=== PATIENT | female | born 1935 ===

== ENCOUNTER 2016-07-11 09:06 | Inpatient (IN) ==
--- NOTE | 2016-07-11 09:39 | PROVIDER DOCUMENTATION ---
HPI-Musculoskeletal Pain/Inj - GENERAL Chief Complaint: Fall Stated Complaint: fall Time Seen by Provider: 07/11/16 09:29 Source: patient, family - HX OF PRESENT ILLNESS-MUSKULOSKELTAL Nature of Presenting Problem: 80 year old obese WF presents with c/o right hip, right shoulder pain, onset just prior to arrival when her right hip "gave out" and she fell onto a kitchen floor. pt reports she did not strike her head on the floor. pt denies chest pain , shortness of breath, difficulty breathing, palpitations, any complaints prior to fall. pt called her sons who brought her to the ED. they report she was unable to bear weight on the right hip at home. family gave her [place] 10mg at 0830 for pain. Quality of Pain: reports: aching, dull Severity in ED: mild Onset/Duration: just prior to arrival Timing: still present, constant, getting worse Modifying Factors: improves with: analgesics, movement Any recent injury?: Yes Locality of Occurance: Home Similar Symptoms Previously?: No Recently seen or treated by another doctor?: No - FALL INJURY Location of Pain/Injury: reports: pelvis (and right hip) Pain Radiation: reports: no radiation Reason for Fall: reports: lost balance, slipped, tripped Symptoms prior to fall:: reports: none. denies: headache, seizure, other, fever /chills/sweaty, chest pain, rapid heart rate, cough, diarrhea, vomiting, GI bleed, dizzy/lightheaded Loss of Consciousness: no loss of consciousness Injury Associated Symptoms: reports: joint pain, unable to bear weight, trouble walking. denies: denies symptoms, arm pain, back/neck pain, chest pain, diaphoresis, dizziness, headaches, muscle aches, nausea, puncture wound, shortness of breath, sensory/motor loss, snap/crack/pop sensation, pain with inspiration, vomiting, weakness, other - HIP/PELVIS PAIN/INJURY Hip Pain Location: reports: hip (R), pelvis Pain Radiation: reports: no radiation Context / Method of Injury: reports: fall Associated Symptoms: reports: denies symptoms. denies: loss of bladder control , loss of bowel control, lower back pain, muscle spasms, numbness in legs/feet, sensory/motor loss, tingling in legs/feet, weakness in legs/feet, other Review of Systems - Adult - REVIEW OF SYSTEMS - ADULT Constitutional: reports: no symptoms reported. denies: chills, fever, fatique Eyes: reports: no symptoms reported. denies: discharge, blurred vision, double vision Ears, Nose, Mouth & Throat: reports: no symptoms reported. denies: ear discharge, ear pain, nose pain, loose teeth, throat pain, throat swelling Cardiovascular: reports: no symptoms reported. denies: chest pain, palpitations , syncope Respiratory: reports: no symptoms reported. denies: chronic cough, cough, shortness of breath, wheezing Gastrointestinal: reports: no symptoms reported. denies: abdominal pain, diarrhea, nausea, vomiting Genitourinary: reports: no symptoms reported. denies: dysuria, hematuria, urgency Musculoskeletal: reports: see HPI, bone pain, joint pain. denies: back pain, frequent leg cramps, joint swelling, muscle aches, muscle weakness, neck pain Integumentary: reports: no symptoms reported. denies: hives, itching, skin sores/ulcer Neurological: reports: no symptoms reported. denies: ataxia, dizziness/vertigo , numbness, paresthesia Psychiatric: reports: no symptoms reported Endocrine: reports: no symptoms reported Hematologic/Lymphatic: reports: no symptoms reported Allergic/Immunologic: reports: no symptoms reported All Other Systems: Reviewed and Negative Past History - Adult - PAST MEDICAL HISTORY-ADULT Review of Records: reports: Old Records Reviewed, Nursing Assessment Review, Medications Reviewed, Social history reviewed & non-contributory. Major Childhood Illnesses: reports: denies history Cardiovascular: reports: HTN, hyperlipidemia Respiratory: reports: denies history Gastrointestinal: reports: GERD Obstetrical/Gynecological: reports: denies history Genitourinary: reports: denies history Musculoskeletal: reports: denies history Neurological: reports: other (neuropathy) Endocrine/Immune: reports: Diabetes Diabetes Type: Type 2 Other Conditions: reports: denies history - PRIOR SURGERIES/PROCEDURES Surgical/Procedure History: reports: cholecystectomy, hysterectomy, BTL, tonsillectomy, orthopedic (extremity) (right hip), other (cataract removal) - PRIOR HOSPITALIZATIONS Prior Hospitalizations: reports: none - IMMUNIZATION STATUS Childhood Immunizations: See Nurse Assessment Flu Vaccine: See Nurse Assessment - FAMILY HISTORY Family History: reviewed, not pertinent - SOCIAL HISTORY Smoking: denies, non-smoker Substance Use: none/never Alcohol Use Frequency: never Physical Exam-Injury Related - Physical Exam-Injury Related Initial Vital Signs Reviewed: Yes General Appearance: appears well, alert, mild distress, obese. negative: no apparent distress, moderate distress Immobilization?: negative: backboard, C-collar Eyes: pink conjunctivae. negative: photophobia, sclera injected, scleral icterus, subconjunctival hemorrhage Head, Ears, Nose, Mouth & Throat: normocephalic/atraumatic, moist mucous membranes, normal ENT inspection, TMs normal, pharynx normal Neck: non-tender, full range of motion, supple, normal inspection. negative: C- spine tenderness, decresed ROM, ecchymosis, limited range of motion, pain on movement, tender lateral, tender midline, vertebral point tenderness Respiratory: chest non-tender, lungs clear, normal breath sounds, no pleuratic chest pain, no respiratory distress, no accessory muscle use. negative: respiratory distress, decreased breath sounds, accessory muscle use, crackles, rales, rhonchi, stridor, wheezing Cardiovascular: normal peripheral pulses, regular rate, rhythm Chest/Breast: no tenderness Peripheral Pulses: radial (R): 3+, radial (L): 3+, dorsalis-pedis (R): 3+, dorsalis-pedis (L): 3+ Abdominal Exam: normal bowel sounds, non tender, soft Back Exam: normal inspection, no CVA tenderness, no vertebral tenderness. negative: CVA tenderness, decreased range of motion, swelling, vertebral tenderness Extremity: normal inspection, no pedal edema, no calf tenderness, normal capillary refill, pelvis stable, tenderness (right hip/pelvis tenderness). negative: normal range of motion, non-tender, normal gait, abnormal NV exam, calf tenderness, deformity (negative for shortening/rotation), erythema, inflammation, joint effusion, pulse deficit, pedal edema, slow capillary refill , swelling Integumentary: normal color, warm/dry Neurologic: grossly normal, no motor/sensory deficits Psych/Mental Status: normal mood/affect, normal thought content, normal thought process, oriented x 3 - [place] Coma Score Best Eye Response (Hieu): (4) open spontaneously Best Verbal Response (Hieu): (5) oriented Best Motor Response (Hieu): (6) obeys commands [place] Total: 15 Progress - PLAN OF CARE/RESULTS Progress/Plan/Lab Results: Vital Signs - 8 hr 07/11/16 09:09 07/11/16 12:08 07/11/16 12:20 Temperature 97.9 F Pulse Rate 71 62 Respiratory Rate 20 18 Blood Pressure 210/83 152/44 O2 Sat by Pulse Oximetry 100 95 100 Laboratory Results - last 24 hr 07/11/16 07/11/16 11:15 11:15 WBC 5.79 RBC 3.40 L Hgb 10.6 L Hct 32.4 L MCV 95.3 MCH 31.2 H MCHC 32.7 L RDW Std Deviation 15.8 H Plt Count 222 MPV 8.8 Immature Gran % (Auto) 0.5 Neut % (Auto) 67.6 Lymph % (Auto) 23.0 [place] % (Auto) 6.0 Eos % (Auto) 2.6 Baso % (Auto) 0.3 Immature Gran # (Auto) 0.03 Neut # (Auto) 3.91 Lymph # (Auto) 1.33 [place] # (Auto) 0.35 Eos # (Auto) 0.15 Baso # (Auto) 0.02 Sodium 137 Potassium 4.9 Chloride 97 L Carbon Dioxide 26 Anion Gap 14 BUN 16 Creatinine 1.0 H Estimated GFR/1.73 m2 54 BUN/Creatinine Ratio 16 Glucose 214 H Calculated Osmolality 281 Calcium 9.5 Total Bilirubin 0.39 AST 16 ALT 15 Alkaline Phosphatase 82 Total Protein 8.7 H Albumin 3.4 L Globulin 5.3 Albumin/Globulin Ratio 0.6 Orders Category Date Time Status CHEST-1 VIEW [RAD] Stat Exams 07/11/16 10:19 Completed LUMBAR SPINE W/O CONTRAST [CT] Stat Exams 07/11/16 10:19 Completed SHOULDER-RIGHT [RAD] Stat Exams 07/11/16 09:31 Completed XRAY PELVIS W/HIP 2-3VW RT [RAD] Stat Exams 07/11/16 09:30 Completed CBC WITH DIFF [HEME] Stat Lab 07/11/16 11:15 Completed CMP [COMPREHENSIVE METABOLIC PANEL] [CHEM] Stat Lab 07/11/16 11:15 Completed UA NIMS W/REFLEX CULT [URINALYSIS] Stat Lab 07/11/16 10:18 Uncollected 0.9% Sodium Chloride Inj [Ns] 1,000 ml Med 07/11/16 10:58 Discontinued IV KVO Hydromorphone [Dilaudid] Med 07/11/16 10:24 Discontinued 0.5 mg IV NOW ONE Ondansetron [Zofran] Med 07/11/16 10:58 Discontinued 4 mg IV NOW ONE EKG [EKG] Stat Ther 07/11/16 10:19 Ordered Reviewed case, radiology H&P with Dr. Singh, agrees with admission in light of pts in ability to ambulate/bear weight. Result Diagrams: 07/11/16 11:15 07/11/16 11:15 - REASSESSMENT Reassessment #1 Time Reassessed: 10:15 Status: worsening (pt was able stand, unable to ambulate secondary to pain; pt reports her lower back (lumbar region is tender); family has now reported terrell has a history of multiple myeloma. Will perform CT lumbar region, admission labs, additional pain medications.) Reassessment #2 Time Reassessed: 11:28 Status: improving (pt reports pain relief at this time. Notified family/pt of radiology findings with plan to admit, verbalized undetstanding/agree with plan of care.) Reassessment #3 Time Reassessed: 12:21 Status: other (pt reports feeling short of breath, o2 sat 99% 2lnc, RR18 unlabored, lungs clear equal bilaterally, HR 68. Pt reports a history of same in the past and it resolves with multiple deep breaths. Pt took multiple deep breaths and reports the shortness of breath in improved.) - XRAY 1 XRAY: Right XRAY Study: Shoulder Impression: Normal (Per Dr. Darby) 2 XRAY: Right XRAY Study: Pelvis, Hip Impression: Normal (per Dr. Darby) 3 XRAY Study: Chest Impression: Normal (per Dr. Darby.) - CT/MRI 1 CT Study: Lumbar Spine Impression: Abnormal (minimal compression fracture of the anterior upper endplate of L1. Spinal stenosis at L4-L5. per Dr. Darby. Reviewed these results with Dr. Singh.) - CONSULTS/PCP/HOSPITALIST Notification #1 *Consult/PCP/Hospitalist*: paged hospitalist sap security consultant Time Discussed: 12:22 #2 Consult: [employer] Time Discussed: 12:32 Consult Disposition: Will see in ED, Admit Departure - Departure Time of Disposition Decision: 12:32 DIAGNOSIS: Inability to bear weight Fall Qualifiers: Encounter type: initial encounter Qualified Code(s): W19.XXXA - Unspecified fall, initial encounter Compression fracture of L1 lumbar vertebra Qualifiers: Encounter type: initial encounter Fracture type: closed Qualified Code(s): S32.010A - Wedge compression fracture of first lumbar vertebra, initial encounter for closed fracture Disposition: ADMITTED INPATIENT 09 Certified Medical Emergency: Emergent Condition: Stable Referrals and Follow-Ups: Sulaiman Borden MD [Primary Care Provider] - - Critical Care Note This patient required my direct & personal management of CC.: No Attestation - Physician/ MATTY Attestation Patient care was provided by Advanced Practice Provider:: Yes Advanced Practice Provider:: Everton Cosme Advanced Practice Provider documentation review:: The Mid-level provider documentation, treatment plan and medical decision making was reviewed by the physician who agrees with all treatment and medical decision making by the MLP.
--- NOTE | 2016-07-11 10:04 | Diag Imaging Result Doc PS360 ---
EXAM: SHOULDER-RIGHT HISTORY: fall, right posterior shoulder tenderness TECHNIQUE: Three views with scapular Y view COMMENT: There are some hypertrophic changes in the acromioclavicular joint. There is no evidence of acute fracture or dislocation. IMPRESSION: No acute bony disease. Electronically signed by Alistair Darby 07/11/2016 10:02 AM
--- NOTE | 2016-07-11 10:05 | Diag Imaging Result Doc PS360 ---
EXAM: X-RAY PELVIS W/HIP 2-3VW RT HISTORY: fall, right lateral hip tenderness TECHNIQUE: AP pelvis and frog-leg lateral right hip four views COMMENT: There is some generalized osteopenia. There is a bipolar prosthesis on the right. There are atherosclerotic calcifications in the common femoral and superficial femoral artery on the right. There is no evidence of acute fracture or dislocation. IMPRESSION: No acute bony disease. Electronically signed by Alistair Darby 07/11/2016 10:03 AM
[2016-07-11] MEDS ORDERED: DILAUDID IV ONE (10:24)
[2016-07-11] MEDS ORDERED: ZOFRAN IV ONE (10:58)
[2016-07-11] MEDS ORDERED: NS 1,000 ML IV ONE (10:58)
--- NOTE | 2016-07-11 10:59 | Diag Imaging Result Doc PS360 ---
EXAM: CHEST-1 VIEW INDICATION: admission TECHNIQUE: One view COMPARISON: 05/01/2014 FINDINGS: The lungs are grossly clear. There is no discrete pleural fluid collection. The cardiomediastinal silhouette and central vasculature are grossly unremarkable. IMPRESSION: No evidence of acute pathology. Electronically signed by Quinn Lobo 07/11/2016 10:56 AM
--- NOTE | 2016-07-11 11:07 | Diag Imaging Result Doc PS360 ---
EXAM: LUMBAR SPINE W/O CONTRAST HISTORY: fall, lumbar tenderness TECHNIQUE: CT of the lumbar spine without contrast COMMENT: There is generalized osteopenia. There are degenerative disc changes present at T10-11 with some hypertrophic facet change on the left. At the T11-12 level there is mild disc bulge. At T12-L1 there is mild disc bulge. There is mild disc bulge at L1-2 and L2-3. There is disc bulge and right facet arthropathy with vacuum joint phenomenon at L3-4. At L4-5 there is severe disc bulge and facet arthropathy with a mild to moderate degree of spinal stenosis. At the L5-S1 level there is no spinal or foraminal stenosis. There may be a herniated nucleus pulposis on the left at this level however. There is questionable anterior upper endplate fracture at the L1 level. Otherwise there is no evidence of fracture or subluxation. IMPRESSION: Minimal compression fracture of the anterior upper endplate of L1. Spinal stenosis at L4-5. Electronically signed by Alistair Darby 07/11/2016 11:05 AM
[2016-07-11 11:25] LABS: MANUAL DIFF NEEDED? NO
[2016-07-11 11:36] LABS: BASO% 0.3 % (0.0-0.8); EOS# 0.15 X1000 (0.0-0.7); EOS% 2.6 % (0.0-10.0); HEMATOCRIT 32.4 % (37.0-47.0); HEMOGLOBIN 10.6 g/dL (12.0-16.0); IMM GRAN# 0.03 X1000 (0.0-0.04); IMM GRAN% 0.5 % (0.0-0.5); LYMPH# 1.33 X1000 (1.2-3.4); MCH 31.2 PG (27-31); MCHC 32.7 g/dL (33-37); MCV 95.3 FL (81-99); MONO# 0.35 X1000 (0.11-0.59); MPV 8.8 FL (7.4-10.4); NEUT% 67.6 % (42.2-75.2); PLT 222 X1000 (130-400)
[2016-07-11 12:01] LABS: ALBUMIN 3.4 g/dL (3.5-5.0); CALCIUM 9.5 mg/dL (8.8-10.2); POTASSIUM 4.9 mmol/L (3.5-5.1); TOTAL BILIRUBIN 0.39 mg/dL (0.20-1.00); TOTAL PROTEIN 8.7 g/dL (6.3-8.3)
--- NOTE | 2016-07-11 12:56 | EKG Report ---
Test Performed on : 07/11/2016 11:39:23 AM Test Reason : admission Blood Pressure : / mmHG Vent. Rate : 066 BPM Atrial Rate : 066 BPM P-R Int : 200 ms QRS Dur : 074 ms QT Int : 418 ms P-R-T Axes : 000 -01 069 degrees QTc Int : 438 ms Normal sinus rhythm. Normal ECG When compared with ECG of 01-MAY-2014 13:31, No significant change was found Unconfirmed Result
[2016-07-11] MEDS ORDERED: NORCO-7.5 PO PRN (13:42)
[2016-07-11] MEDS ORDERED: TYLENOL PO PRN (13:42)
[2016-07-11] MEDS: DILAUDID IV PRN ×3 (13:57→21:52)
--- NOTE | 2016-07-11 14:11 | HISTORY AND PHYSICAL ---
PRIMARY CARE PROVIDER: Dr. Sulaiman Borden. CHIEF COMPLAINT: Fall with back pain. HISTORY OF PRESENT ILLNESS: Ms. Kylee Aragon is a 80-year-old female with a history of right hip replacement 9 years ago approximately, who states that here recently she has been having issues where she feels like her right hip is starting to get weaker and trying to get out more frequently. She has had no other falls except for this morning, she was standing at the table fixing her medications for the day. She states that her right hip gave out and she fell on her right side. She currently is having pain at the right shoulder, elbow, hip, knee, and lower back. It is a dull ache. It is a 6/10. It is worse with activity and improves with pain medications. Imaging revealed that she has an L1 compression fracture. Giving issues of unable to move without severe pain, we will admit for possible rehab placement soon and consult Orthopedics for further recommendations. Apparently about a month ago, she also has some severe sciatica that caused her to have severe pain, and she just recently was released from receiving physical therapy. She also states she has a history of a stroke that left her with left-sided weakness and numbness. We will admit to the surgical floor. PAST MEDICAL HISTORY: 1. Diabetes mellitus, type 2. 2. GERD. 3. Hyperlipidemia. 4. Hypertension. 5. 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 6. 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 7. Evolving multiple myeloma, being followed by Dr. Suazo. 8. Vitamin B12 deficiency. 9. Sciatica. SURGICAL HISTORY: Cholecystectomy, bilateral cataracts, hysterectomy, tubal ligation, left hand carpal tunnel release, right hip replacement about [address] Lopez. SOCIAL HISTORY: She denies tobacco, alcohol, or illicit drug use. She uses a cane secondary to her weakness of the left leg. She has 1 son who lives with her home. FAMILY HISTORY: Father had a CVA. REVIEW OF SYSTEMS: Fourteen-point review of systems were complete and all were negative except for those mentioned above in the HPI. ALLERGIES: No known drug allergies. HOME MEDICATIONS: 1. Lipitor 40 mg p.o. nightly. 2. Pletal 100 mg p.o. twice daily. 3. Amaryl 4 mg p.o. twice daily. 4. [place] tablet every 4-6 hours p.r.n. 5. Insulin 70/30, 68 units subcutaneous every morning and regular Humulin NPH, 53 units subcutaneous nightly. 6. Cozaar 100 mg p.o. twice daily. 7. Toprol succinate extended release 50 mg p.o. twice daily. PHYSICAL EXAMINATION: VITAL SIGNS: Temperature is 97.9 degrees, Heart rate 62, respiratory rate 18, blood pressure 152/44, O2 saturation 100% on 2 L nasal cannula. She is 5 feet 2 inches tall, 210 pounds. BMI 38.4. GENERAL: Ms. Aragon is a 80-year-old female. She is in no acute distress but is in pain. She is able to answer most questions appropriately. HEENT: Atraumatic, normocephalic. Pupils equal, round, reactive to light. Extraocular movements are intact. Mucous membranes dry. NECK: No JVD or carotid bruits noted. CARDIOVASCULAR: S1, S2. Regular rate and rhythm. No rubs, gallops, murmurs. PULMONARY: Clear to auscultation. Bilateral breath sounds. No accessory muscle use or work of breathing noted. GASTROINTESTINAL: Soft, nontender, obese. Positive bowel sounds x4. EXTREMITIES: No edema noted. Right knee bruising noted. Right elbow with a small abrasion and behind the right shoulder, about a 5 inch worth of abrasion noted. NEUROLOGIC: Alert and oriented x4. 5/5 strength on the right upper and lower; 4/5 strength in the left upper and lower. LABORATORY DATA: White blood cells 5000. Hemoglobin 10, hematocrit 32, platelet count 222,000. Sodium 137, potassium 4.9. BUN 16, creatinine is 1.0, glucose is 214. Calcium is 9.5. Total bilirubin 0.39. AST 16, ALT 15. Albumin 3.4. Urinalysis pending. IMAGING: Lumbar spine CT: Minimal compression fracture of the anterior upper endplate of L1. Spinal stenosis L4-5. EKG: Normal sinus rhythm, rate is 66, QTc is 438. Chest x-ray: No evidence of acute findings. X-ray of the right shoulder: No acute fractures. Hip and pelvis x-ray: Some generalized osteopenia. Bipolar prosthesis on the right. Atherosclerotic calcifications of the common femoral and superficial femoral artery on the right. No acute findings or dislocation. ASSESSMENT AND PLAN: 1. L1 compression fracture. We will consult orthopedics. Reina for pain management. Consult physical therapy and prepare for likely rehabilitation post discharge. 2. Diabetes mellitus, type 2. Pattern blood glucose sliding scale insulin. Diabetic diet. 3. Gastroesophageal reflux disease. Continue with proton pump inhibitor. 4. Hyperlipidemia. Continue with statin. 5. Hypertension. Continue home medications. 6. Cerebrovascular accident noted. No changes. 7. Multiple myeloma, followed by Dr. Suazo. 8. B12 deficiency. Receives shots on occasion I believe at Dr. Suazo's office. 9. Neuropathy of the hands and legs. 10. Deep venous thrombosis prophylaxis. Will do sequential compression devices. 11. Gastrointestinal prophylaxis. Proton pump inhibitor. Dictated by ROLANDO Méndez for Paras Victoria MD cc: ROLANDO Méndez MD Hiteshri S. Bhavsar, MD
[2016-07-11] MEDS: NS 1,000 ML IV SCH ×2 (14:26→20:12)
--- NOTE | 2016-07-11 17:03 | CONSULTATION ---
DATE OF CONSULTATION: 07/11/2016 REASON FOR CONSULT: The patient had an L1 compression fracture. HISTORY OF PRESENT ILLNESS: Ms. Aragon is a 80-year-old, white female with a history of right hip replacement in the past, and she states that she has become weaker in her right hip and she took a fall this morning, landing on her back and her right side. She is complaining of low back and mid back pain currently. L-spine images were obtained which revealed an L1 compression fracture. We have been asked to further evaluate this fracture. PAST MEDICAL HISTORY: Diabetes type 2. Gastroesophageal reflux disease. Hyperlipidemia. Hypertension. Neuropathy of the upper and lower extremities. Cerebrovascular accident with some weakness on the left side. Multiple myeloma. Vitamin B12 deficiency. Sciatica. PAST SURGICAL HISTORY: Cholecystectomy. Bilateral cataract. Hysterectomy. Tubal ligation. Left hand carpal tunnel release. Right hip surgery. SOCIAL HISTORY: She denies tobacco and alcohol. She currently uses a cane, and she lives at home with her son. FAMILY HISTORY: Father had a CVA. REVIEW OF SYSTEMS: A 10-point review of systems was performed. The patient answered negative in all except what was answered in the HPI. ALLERGIES: No known drug allergies. PRIMARY CARE PROVIDER: Dr. Borden. HOME MEDICATIONS: Lipitor 40 mg p.o. nightly. Pletal 100 mg p.o. twice daily. Amaryl 4 mg p.o. twice daily. [place] q.4-6 hours p.r.n. unknown dose. Insulin 70/30, she uses 68 units subcutaneous in the morning and regular NPH 53 units in the evening. Cozaar 100 mg p.o. twice daily. Toprol succinate extended release 50 mg p.o. twice daily. PHYSICAL EXAMINATION: General: The patient is awake, she is lying in bed. She is articulate. She is able to answer questions appropriately. Her family is sitting around her. Musculoskeletal: Physical exam of the patient reveals some pain and tenderness along her spine, more so in the lumbar region. She has pain with palpation. The patient has good sensation to dull touch in her lower extremities, and she has good range of motion of her feet and toes. She has some underlying neuropathy which has not worsened since the event. IMAGING: Lumbar spine CT without contrast revealed minimal compression fracture of the anterior upper endplate of L1, and some spinal stenosis at L4 and L5. ASSESSMENT: Compression fracture at L1 as well as spinal stenosis at L4 and L5. PLAN: At this point, I discussed the injury with Ms. Aragon and explained the plan. We will plan to mobilize her with a lumbar corset or brace while using a walker to mobilize her. We would like to have her followup with the neuro spine doctor, Dr. Juancarlos Nath, upon discharge from the hospital. We will also assist in pain management if necessary, and we will be available p.r.n. while she is here in the hospital. Dictated by ROLANDO Vyas for Quinn Wang MD cc: ROLANDO Vyas MD
[2016-07-11] MEDS: HUMULIN R SUBQ SCH ×2 (17:10→21:41)
[2016-07-11] MEDS: ZOFRAN IV PRN (19:16)
[2016-07-11 19:47] LABS: URINE CULTURE NEEDED? NO; URINE MICRO REVIEW NEEDED? NO; URINE SOURCE CLEAN CATCH
[2016-07-11 19:52] LABS: BILIRUBIN URINE NEGATIVE (NEGATIVE); BLOOD URINE NEGATIVE (NEGATIVE); COLOR YELLOW; GLUCOSE URINE TRACE mg/dL (NEGATIVE); LEUKOCYTES URINE NEGATIVE (NEGATIVE); NITRITE URINE NEGATIVE (NEGATIVE); PH URINE 5.5; PROTEIN URINE 30 mg/dL (NEGATIVE); SP GRAVITY URINE 1.017; TURBIDITY URINE CLEAR (CLEAR); UROBILINOGEN URINE NORMAL (NORMAL)
[2016-07-11 19:56] LABS: UR EPITHELIAL CELLS <10 /HPF (<10); URINE BACTERIA NEGATIVE /HPF; URINE RBC <10 /HPF (<10); URINE WBC <10 /HPF (<10)
[2016-07-11] MEDS: COZAAR PO SCH (21:40)
[2016-07-11] MEDS: AMARYL PO SCH (21:40)
[2016-07-11] MEDS: TOPROL XL PO SCH (21:40)
[2016-07-11] MEDS: PLETAL PO SCH (21:40)
[2016-07-11] MEDS: HUMULIN 70/30 SUBQ SCH (21:41)
[2016-07-11] MEDS: LIPITOR PO SCH (21:52)
[2016-07-12] MEDS: NS 1,000 ML IV SCH ×2 (03:20→11:51)
[2016-07-12] MEDS: DILAUDID IV PRN ×3 (03:30→16:27)
[2016-07-12] MEDS: HUMULIN R SUBQ SCH ×4 (06:10→21:31)
[2016-07-12] MEDS ORDERED: INSULIN PEN NEEDLES ONE (07:09)
[2016-07-12 07:10] LABS: MANUAL DIFF NEEDED? NO
[2016-07-12 07:22] LABS: BASO% 0.2 % (0.0-0.8); EOS# 0.15 X1000 (0.0-0.7); EOS% 2.6 % (0.0-10.0); HEMATOCRIT 30.2 % (37.0-47.0); HEMOGLOBIN 9.5 g/dL (12.0-16.0); LYMPH# 1.44 X1000 (1.2-3.4); LYMPH% 24.7 % (20.5-51.1); MCH 30.6 PG (27-31); MCHC 31.5 g/dL (33-37); MCV 97.4 FL (81-99); MONO# 0.42 X1000 (0.11-0.59); MONO% 7.2 % (1.7-9.3); MPV 8.9 FL (7.4-10.4); NEUT% 65.3 % (42.2-75.2); PLT 215 X1000 (130-400)
[2016-07-12 07:23] LABS: PROTIME 10.5 Seconds (9.2-11.7); PTT 29.2 Seconds (22.0-36.0)
[2016-07-12 07:52] LABS: AGAP 13; ALBUMIN 3.1 g/dL (3.5-5.0); ALKALINE PHOSPHATASE 73 U/L (32-104); BUN 15 mg/dL (8-22); CALCIUM 8.8 mg/dL (8.8-10.2); CHLORIDE 100 mmol/L (98-107); COSMO 278; GOT 13 U/L (10-30); GPT 14 U/L (10-36); MAGNESIUM 1.9 mg/dL (1.5-2.7); POTASSIUM 4.3 mmol/L (3.5-5.1); SODIUM 139 mmol/L (136-145); TCO2 26 mmol/L (25-35); TOTAL BILIRUBIN 0.49 mg/dL (0.20-1.00); TOTAL PROTEIN 7.6 g/dL (6.3-8.3)
[2016-07-12] MEDS: ZOFRAN IV PRN (08:01)
[2016-07-12] MEDS: PRILOSEC PO SCH (09:00)
[2016-07-12] MEDS: COZAAR PO SCH ×2 (10:09→22:00)
[2016-07-12] MEDS: PLETAL PO SCH ×2 (10:10→21:59)
[2016-07-12] MEDS: HUMULIN 70/30 SUBQ SCH ×2 (10:10→21:32)
[2016-07-12] MEDS: AMARYL PO SCH ×2 (10:10→21:59)
[2016-07-12] MEDS: TOPROL XL PO SCH ×2 (10:10→22:00)
[2016-07-12] MEDS: SYNTHROID PO SCH (12:58)
--- NOTE | 2016-07-12 14:10 | Diag Imaging Result Doc PS360 ---
EXAM: SCAPULA-RIGHT HISTORY: right shoulder pain s/p fall TECHNIQUE: Two views COMMENT: There is deformity of the inferior medial humeral head which is not apparent on the previous study of 07/11/2016. This may be a result of slight differences in obliquity. There are degenerative changes in the acromioclavicular joint. There is apparent fracture of the neck of the scapula. This is only seen on the Y view. It was not apparent on the previous examination. IMPRESSION: Apparent scapular fracture. 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 Electronically signed by Alistair Darby 07/12/2016 2:07 PM
--- NOTE | 2016-07-12 14:12 | PROGRESS NOTE ---
DATE: 07/12/2016 Today Ms. Aragon refers to be doing a lot better. Has some right shoulder discomfort. She did say she has issues with constipation or occasionally with diarrhea alternating. She has been progressively slow and very low in energy and has been losing her hair for the past couple months. They attributed this to her multiple myeloma and also B12 deficiency. She has been getting shots for that. OBJECTIVE: Vital signs: Blood pressure is 126/54, pulse of 62, respiration is 19, temperature 97.8 degrees. General: Ms. Aragon is a 80-year-old female. She is in bed. She did not seem to be in any remarkable distress. HEENT: Mucosa is pink and moist. Anicteric. Acyanotic. Neck: Supple. Chest: Air entry is bilaterally reduced. Cardiovascular: Regular rate and rhythm. Abdomen: Soft, distended. There is orthopedic brace on the whole trunk. Extremities: No pedal edema. Musculoskeletal: Some tenderness and mobilization of the right shoulder. RN CORRECTIONS: Patient is alert and oriented. There is not any focal neurological deficit. LABORATORY DATA: WBC is 5.84, hemoglobin is 9.5, platelet count of 215,000. Chemistry is reviewed. Completely unremarkable. The patient's TSH is 5.16 and free T4 is 0.87 consistent with hypothyroidism. Lumbar CT which was done did show minimal compression fracture of the anterior upper endplate of L1, spinal stenosis at L4-L5. ASSESSMENT: 1. Mild compression L1 fracture. Patient has been evaluated by Orthopedics. At this point, they only recommend supportive measures with braces/corset, adequate pain control , rehabilitation and follow up with a spine surgeon in [place] after patient is discharged. 2. Right shoulder pain. I think this is probably a contusion after she fell. The daughter though was kind of more persistent and insistent that she would want an x- ray because she has the feeling that it might be a fracture. The patient actually is able to move the arm in any direction, it is just slightly painful. There is no swelling and neurovascular evaluation is intact. However we x-rayed it. we will be waiting for the official report from the from the radiologist. 3. Newly diagnosed hypothyroidism. I think this is the reason why she has been very sluggish, slow mentation, constipated, losing hair. We are going to start her on Synthroid 75 mg daily and patient has been advised to follow up with the trial attorney in [place]. 4. Hypertension, diabetes stable. So in general I think Ms. Aragon is stable. She was able to do physical therapy today. We are going to start her on Synthroid. Awaiting the x-ray report of the right shoulder. Kasia from [facility] came to evaluate the patient for possible transfer to the rehab center. The patient will follow up with spinal surgery once she finishes with rehabilitation. 4:00pm I have review the official report of Xray neck fracture to scapula. I have spoke to ROLANDO Albarran for Dr Wang and notified about the fracture. He will pass it on to Dr Wang. They will deal with it first thing in the morning. cc: Paras Victoria MD MTDD
[2016-07-12] MEDS ORDERED: MIRALAX PO PRN (17:15)
[2016-07-12] MEDS: LIPITOR PO SCH (22:00)
[2016-07-13] MEDS: NS 1,000 ML IV SCH ×3 (03:19→09:59)
[2016-07-13] MEDS: DILAUDID IV PRN ×2 (05:19→18:35)
[2016-07-13] MEDS: SYNTHROID PO SCH (06:13)
[2016-07-13] MEDS: HUMULIN R SUBQ SCH ×4 (06:53→21:03)
[2016-07-13] MEDS: TOPROL XL PO SCH ×2 (09:47→21:01)
[2016-07-13] MEDS: AMARYL PO SCH ×2 (09:47→21:01)
[2016-07-13] MEDS: COZAAR PO SCH ×2 (09:47→21:01)
[2016-07-13] MEDS: PRILOSEC PO SCH (09:47)
[2016-07-13] MEDS: PLETAL PO SCH ×2 (09:47→21:01)
[2016-07-13] MEDS: HUMULIN 70/30 SUBQ SCH ×2 (09:48→21:02)
[2016-07-13] MEDS ORDERED: DULCOLAX PR ONE ×2 (13:20→18:30)
--- NOTE | 2016-07-13 13:55 | PROGRESS NOTE ---
DATE: 07/13/2016 SUBJECTIVE: Today, Ms. Aragon refers to be doing a lot better. She has been able to do some physical therapy. Still complained of some pain in the left shoulder. OBJECTIVE: Vital Signs: Blood pressure is 123/47, pulse is 61, respirations 14, temperature 97.8 degrees. General: Ms. Aragon is a 80-year-old female. She is in bed. She did not seem to be in any remarkable distress. HEENT: Mucosa is pink and moist. Anicteric. Acyanotic. Chest: Good air entry bilaterally. There is a spinal brace around the trunk. Abdomen is soft, distended. Extremities: No pedal edema. HOUSING AND RESIDENCE LIFE DIRECTOR: The patient is alert and oriented x4. No focal neurological deficit. LABORATORY WORK: There is no lab work for today. Glucose is 207. An x-ray of the scapula done yesterday shows apparent scapular fracture and degenerative arthritis in the AC joint. ASSESSMENT: 1. Mild compression L1 fracture. 2. Right scapular neck fracture with degenerative joint disease. 3. Stable multiple myeloma. The patient follows up with Dr. Suazo. 4. Newly diagnosed hypothyroidism. 5. Hypertension. 6. Morbid obesity with a Body Mass Index of 37.2. 7. Constipation. In general, I think Ms. Aragon is relatively stable. We are pending Dr. Wang, the Orthopedic team, to evaluate her for the right shoulder scapular fracture and give some recommendations before we discharge her. If that is done today, we might be able to discharge her later on today or first thing tomorrow morning. The patient will need to continue physical therapy with home health and try and get an appointment with Neurosurgery for evaluation of the L1 compression fracture. cc: Paras Victoria MD
[2016-07-13] MEDS: LIPITOR PO SCH (21:01)
[2016-07-14] MEDS: DILAUDID IV PRN ×2 (01:22→08:28)
[2016-07-14] MEDS: NS 1,000 ML IV SCH ×3 (06:40→08:21)
[2016-07-14] MEDS: SYNTHROID PO SCH (06:40)
[2016-07-14] MEDS: HUMULIN R SUBQ SCH (06:44)
[2016-07-14 07:41] VITALS: BP 152/5
[2016-07-14] MEDS: PLETAL PO SCH (08:30)
[2016-07-14] MEDS: TOPROL XL PO SCH (08:30)
[2016-07-14] MEDS: AMARYL PO SCH (08:30)
[2016-07-14] MEDS: PRILOSEC PO SCH (08:31)
[2016-07-14] MEDS: HUMULIN 70/30 SUBQ SCH (08:31)
[2016-07-14] MEDS: COZAAR PO SCH (08:31)
--- NOTE | 2016-07-14 20:06 | DISCHARGE SUMMARY ---
ADMISSION DATE: 07/11/2016 DISCHARGE DATE: 07/14/2016 DISPOSITION: Home with home health. FOLLOWUP: 1. Dr. Villa (spine surgeon in [place].) 2. Dr. Wang. 3. The patient has been also advised to follow up with criminal justice professor. 4. Also PCP Dr. Borden. CONSULTATION DURING THIS ADMISSION: Orthopedic was consulted. Patient was seen by Dr. Wang. INVASIVE PROCEDURE DONE DURING THIS ADMISSION: None. IMAGING STUDIES OF SIGNIFICANCE: 1. A CT scan of the of the lumbar spine was done which shows minimal compression fracture of the anterior superior endplate of L1 spinal stenosis. 2. An x-ray of the scapula showed apparent scapular fracture, degenerative arthritis in the AC joint. ADMISSION DIAGNOSES: 1. Lumbar 1 compression fracture. 2. Diabetes mellitus. 3. Hypertension. 4. Multiple myeloma. DISCHARGE DIAGNOSES: 1. Mild compression lumbar 1 fracture status post fall. 2. Right scapula neck fracture with degenerative joint disease. 3. Stable multiple myeloma, patient follows up with Dr. Suazo. 4. Newly diagnosed hypothyroidism. Patient is now on Synthroid and advised to follow up with an criminal justice professor in [place]. 5. Hypertension controlled. 6. Morbid obesity with a body mass index of 37.2. 7. Constipation. DISCHARGE MEDICATIONS: Include. 1. Metoprolol 50 mg b.i.d. 2. Cilostazol 100 mg b.i.d. 3. Losartan 100 mg b.i.d. 4. Insulin 70/30, 68 in the morning and 53 p.m. 5. Glyburide 4 mg b.i.d. 6. Atorvastatin 40 mg daily. 7. [place] 7.5 q.4 p.r.n. for pain. 8. Levothyroxine 75 mcg daily. PRESENTING COMPLAINT: Was fall with back pain. HISTORY OF PRESENTING COMPLAINT: Ms. Aragon is a 80-year-old female who apparently lost balance at home, fell on the right side of her body and she was not able to stand up on her own. She called for help. She was brought in to the Emergency Department. Initial lab and initial workup revealed an L1 compression fracture. Patient was admitted for further medical care. HOSPITAL COURSE: The patient did pretty well during the hospital stay, was evaluated by orthopedics and spinal braces was recommended. She was able to tolerate physical therapy. Pain was controlled. During the workup at the hospital an x-ray of the shoulder was also done because of pain. It showed a neck fracture of the scapular. Orthopedics reevaluated the patient, recommended a sling and also to follow up with them. Today Ms. Aragon refers to be doing a whole lot better. She is however constipated so we are going to give her a soapsuds enema to help with the bowel since we tried other means and has and has not helped. Once patient is able to move her bowel will be able to discharge her to follow up with her PCP, Dr. Borden and also Dr. Wang, Dr. Villa who is the spine surgeon and also an criminal justice professor for the newly diagnosed hypothyroidism. Today Ms. Aragon vitals blood pressure is 152/40, pulse of 63, respirations 20, temperature is 98.0 degrees, patient is saturating 98% on room air. She is going to be discharged in a very stable condition. All the discharge instructions have been discussed with her. The was also at the bedside during the whole encounter. TIME SPENT: 37 minutes. cc: Paras Victoria MD
== END 2016-07-14 11:45 | disposition home health service (06) ==
LOC: ED 09:06 → 3N 13:22
PROVIDERS: ATTEND Internal Medicine

== ENCOUNTER 2016-09-05 19:24 | Inpatient (IN) ==
[2016-09-05] MEDS ORDERED: NS 1,000 ML IV SCH (20:13)
[2016-09-05 20:23] LABS: BASO% 0.3 % (0.0-0.8); EOS# 0.15 X1000 (0.0-0.7); EOS% 1.9 % (0.0-10.0); HEMATOCRIT 27.3 % (37.0-47.0); HEMOGLOBIN 8.6 g/dL (12.0-16.0); IMM GRAN# 0.03 X1000 (0.0-0.04); IMM GRAN% 0.4 % (0.0-0.5); LYMPH# 1.49 X1000 (1.2-3.4); LYMPH% 18.8 % (20.5-51.1); MANUAL DIFF NEEDED? NO; MCH 30.5 PG (27-31); MCHC 31.5 g/dL (33-37); MCV 96.8 FL (81-99); MONO# 0.47 X1000 (0.11-0.59); MONO% 5.9 % (1.7-9.3); MPV 8.7 FL (7.4-10.4); NEUT% 72.7 % (42.2-75.2); PLT 282 X1000 (130-400); RBC 2.82 XMIL (4.2-5.4)
--- NOTE | 2016-09-05 20:30 | PROVIDER DOCUMENTATION ---
HPI-Abdominal Pain/GI Problem - General Chief Complaint: Rectal Bleeding Stated Complaint: gi bleed Time Seen by Provider: 09/05/16 19:42 Source: patient, family Allergies/Adverse Reactions: Patient Allergies Allergy/AdvReac Type Severity Reaction Status Date / Time No Known Allergies Allergy Verified 09/05/16 19:33 Home Medications: Home Medication List Medication Instructions Recorded Confirmed Last Taken Type Cilostazol [Pletal] 100 mg PO BID 05/12/13 09/05/16 07/10/16 History Glimepiride [Amaryl] 4 mg PO BID 05/12/13 09/05/16 07/10/16 History Insulin Humulin 70/30 [Humulin 55 unit SUBQ QAM 05/12/13 09/06/16 07/10/16 History 70/30] Metoprolol Succinate E.r. [Toprol 50 mg PO BID 05/12/13 09/05/16 07/10/16 History Xl] Insulin NPH Hum/Reg Insulin Hm 35 unit SQ QPM 05/20/16 09/06/16 07/10/16 History [Humulin 70-30 Vial] Latanoprost 0.005% Oph Soln 1 drop BOTH EYES DAILY 07/11/16 09/05/16 07/11/16 13 :00 History [Xalatan 0.005% Oph Soln] Polyethylene Glycol 3350 [Miralax] 17 gm PO DAILY PRN PRN #20 powder, 07/14/16 09/05/16 Unknown Rx packet Aspirin [Aspir-Low] 81 mg PO DAILY 09/05/16 09/05/16 Unknown History Citalopram [Celexa] 20 mg PO DAILY 09/05/16 09/05/16 Unknown History Amoxicillin/Potassium Clav 1 each PO BID #20 tablet 09/08/16 Unknown Rx [Augmentin 875-125 Tablet] Hydrocodone/APAP 5 mg/325 mg 1 each PO Q4H PRN PRN #20 tablet 09/08/16 Unknown Rx [Kent-5] Losartan Potassium [Cozaar] 100 mg PO DAILY #0 09/08/16 09/05/16 07/10/16 Rx - History of Present Illness-ABD Nature of Presenting Problems: PT STS SINCE 1PM HAS HAD 4 EPISODES OF BLOODY STOOL. LAST BM SHE HAD SYNCOPAL EPISODE. HX OF BLOOD THINNER USE. DR. NORRIS AT BEDSIDE TO EVALUATE FOR ADMISSION. Abdominal Pain Onset Location: reports: LLQ Pain Radiation: reports: no radiation Quality of Pain: reports: dull Onset/Duration: reports: this afternoon Timing: reports: still present Exposure to sick contacts?: No Modifying Factors: improves with: nothing Associated Symptoms: reports: nausea, syncope, weakness Last BM: this afternoon Dark Stools Present?: reports: bright red blood Rectal Bleeding: reports: bloody diarrhea # of Diarrhea Episodes: 4 Emesis Description: reports: none Review of Systems - Adult - REVIEW OF SYSTEMS - ADULT Constitutional: reports: no symptoms reported. denies: fever Eyes: reports: no symptoms reported Ears, Nose, Mouth & Throat: reports: no symptoms reported Cardiovascular: reports: see HPI, syncope. denies: chest pain Respiratory: reports: no symptoms reported. denies: dyspnea on exertion, shortness of breath Gastrointestinal: reports: see HPI, abdominal pain, diarrhea, nausea, rectal bleeding Genitourinary: reports: no symptoms reported Musculoskeletal: reports: no symptoms reported Integumentary: reports: no symptoms reported Neurological: reports: no symptoms reported Psychiatric: reports: no symptoms reported Endocrine: reports: no symptoms reported Hematologic/Lymphatic: reports: no symptoms reported Allergic/Immunologic: reports: no symptoms reported All Other Systems: Reviewed and Negative Past History - Adult - PAST MEDICAL HISTORY-ADULT Review of Records: reports: Nursing Assessment Review, Medications Reviewed Major Childhood Illnesses: reports: denies history Cardiovascular: reports: HTN, hyperlipidemia Respiratory: reports: denies history Gastrointestinal: reports: GERD Obstetrical/Gynecological: reports: denies history Genitourinary: reports: denies history Musculoskeletal: reports: denies history Neurological: reports: other (neuropathy) Endocrine/Immune: reports: Diabetes Other Conditions: reports: denies history - PRIOR SURGERIES/PROCEDURES Surgical/Procedure History: reports: hysterectomy, BTL, tonsillectomy, orthopedic (extremity), other, cholecystectomy - PRIOR HOSPITALIZATIONS Prior Hospitalizations: reports: none - IMMUNIZATION STATUS Childhood Immunizations: See Nurse Assessment Flu Vaccine: See Nurse Assessment - FAMILY HISTORY Family History: reviewed, not pertinent Physical Exam-General - PHYSICAL EXAM-ADULT Initial Vital Signs Reviewed: Yes - CONSTITUTIONAL General Appearance: appears well, alert, no apparent distress - EYES Eyes: PERRL/EOMI - HEAD, EARS, NOSE, MOUTH & THROAT HENMT: normocephalic/atraumatic, moist mucous membranes - RESPIRATORY Respiratory: chest non-tender, lungs clear, normal breath sounds, no pleuratic chest pain, no respiratory distress, no accessory muscle use - CARDIOVASCULAR Cardiovascular: normal peripheral pulses, regular rate, rhythm - GASTROINTESTINAL (ABDOMEN) Abdominal Exam: soft, no organomegaly, no pulsatile mass, tenderness (LLQ). negative: normal bowel sounds (HYPERACTIVE), distended - LYMPHATIC Lymphatic: no adenopathy - MUSCULOSKELETAL Back Exam: normal inspection, no CVA tenderness, no vertebral tenderness Extremity: normal range of motion, non-tender, normal inspection - SKIN Integumentary: normal turgor, warm/dry. negative: normal color (PALE) - NEUROLOGIC Neurologic: grossly normal, no motor/sensory deficits - PSYCHIATRIC Psych/Mental Status: normal mood/affect, oriented x 3 Progress - PLAN OF CARE/RESULTS Progress/Plan/Lab Results: Vital Signs - 8 hr 09/05/16 19:30 Temperature 98.0 F Pulse Rate 78 Respiratory Rate 18 Blood Pressure 102/52 O2 Sat by Pulse Oximetry 95 Laboratory Results - last 24 hr 09/05/16 20:01 WBC 7.92 RBC 2.82 L Hgb 8.6 L Hct 27.3 L MCV 96.8 MCH 30.5 MCHC 31.5 L RDW Std Deviation 16.1 H Plt Count 282 MPV 8.7 Immature Gran % (Auto) 0.4 Neut % (Auto) 72.7 Lymph % (Auto) 18.8 L Dale % (Auto) 5.9 Eos % (Auto) 1.9 Baso % (Auto) 0.3 Immature Gran # (Auto) 0.03 Neut # (Auto) 5.76 Lymph # (Auto) 1.49 Dale # (Auto) 0.47 Eos # (Auto) 0.15 Baso # (Auto) 0.02 Orders Category Date Time Status Nursing- MD Consult Request ROUTINE Care 09/05/16 20:14 Active Saline Loc DIRECTED Care 09/05/16 19:43 Active Physician/Provider Consults Routine Cons 09/05/16 20:13 Ordered NPO Diet 09/05/16 19:43 Active ABDOMEN/PELVIS W/CONTRAST [CT] Stat Exams 09/05/16 19:59 Ordered CBC WITH ELECTRONIC DIFF [HEME] Stat Lab 09/05/16 20:01 Completed COMPREHENSIVE METABOLIC PANEL [CHEM] Stat Lab 09/05/16 20:01 Received CRP [C REACTIVE PROT QUANT] [CHEM] Stat Lab 09/05/16 20:01 Received FERRITIN Stat Lab 09/05/16 20:01 Received OCCULT BLOOD DIAGNOSTIC [STOOL] Stat Lab 09/05/16 19:44 Cancelled UIBC W TOTAL IRON [CHEM] Stat Lab 09/05/16 20:01 Received 0.9% Sodium Chloride Inj [Ns] 1,000 ml Med 09/05/16 20:13 Active IV 75 mls/hr Piperacil/Tazobact 3.375 gm/Ns [Zosyn 3.375 gm/Ns] Med 09/05/16 20:15 Active 3.375 gm in [address] NORRIS AT BEDSIDE EVALUATING PT AND GIVING ORDERS PRIOR TO MY ASSESSMENT. Result Diagrams: 09/08/16 05:15 09/08/16 05:15 - CONSULTS/PCP/HOSPITALIST Notification #1 *Consult/PCP/Hospitalist*: DR. BULLARD BY DR. NORRIS Time Discussed: 20:00 Consult Disposition: Admit Departure - Departure Date of Disposition Decision: 09/05/16 Time of Disposition Decision: 20:00 DIAGNOSIS: Rectal bleeding Disposition: ADMITTED INPATIENT 09 Certified Medical Emergency: Emergent Condition: Stable - Critical Care Note This patient required my direct & personal management of CC.: No Attestation - Physician/ MATTY Attestation Patient care was provided by Advanced Practice Provider:: Yes Advanced Practice Provider:: Marizol Hughes Advanced Practice Provider documentation review:: The Mid-level provider documentation, treatment plan and medical decision making was reviewed by the physician who agrees with all treatment and medical decision making by the MLP.
[2016-09-05 20:40] LABS: AGAP 12; ALBUMIN 2.9 g/dL (3.5-5.0); ALKALINE PHOSPHATASE 71 U/L (32-104); BUN 23 mg/dL (8-22); CALCIUM 8.5 mg/dL (8.8-10.2); CHLORIDE 99 mmol/L (98-107); COSMO 280; GOT 8 U/L (10-30); GPT 7 U/L (10-36); IRON SATURATION 23 %; POTASSIUM 4.5 mmol/L (3.5-5.1); SODIUM 137 mmol/L (136-145); TCO2 26 mmol/L (25-35); TIBC 224 ug/dL; TOTAL BILIRUBIN 0.22 mg/dL (0.20-1.00); TOTAL IRON 52 ug/dL (49-151); TOTAL PROTEIN 7.4 g/dL (6.3-8.3); UNBOUND IRON 172 ug/dL (112-346)
[2016-09-05] MEDS: ZOSYN 3.375 GM/NS 3.375 GM/50 ML IVPB IV SCH (20:47)
[2016-09-05] MEDS ORDERED: NS 1,000 ML IV ONE ×2 (20:50→21:15)
--- NOTE | 2016-09-05 21:11 | CONSULTATION ---
DATE OF CONSULTATION: 09/05/2016 REFERRING PHYSICIAN: Yong Bang M.D. PRIMARY HOSPITALIST: Patel Pollard M.D. PRIMARY CARE PROVIDER: Sulaiman Borden M.D. INDICATION FOR CONSULTATION: 1. Hematochezia. 2. Syncope. 3. Left lower quadrant pain. HISTORY OF PRESENT ILLNESS: The patient is a 81-year-old, white female who is followed by Dr. Kael Doss. She has a GI history of gastroesophageal reflux disease. She was recently evaluated for new onset constipation with abdominal bloating. She was placed on a daily MiraLAX. The patient was recently discharged from rehab after falling in June and sustaining back fracture with an L1 compression fracture. She had been wearing a back brace until approximately 2 weeks ago. According to her family, she complained of constipation for the last 2 weeks. Approximately 5 days prior to admission, she developed left lower quadrant pain. She states that she did not want to disturb her family so she never mentioned it. At 6 p.m. this evening, she passed copious amounts of bright red blood followed by syncope. According to her family, she was unconscious for 1-2 minutes. The paramedics were called. She was transported by ambulance to [facility]. She denies headache, nausea, vomiting, upper abdominal pain. She notes left lower quadrant pain and abdominal bloating. We are asked to participate in her care. PAST MEDICAL HISTORY: 1. Diabetes mellitus 2. 2. GERD. 3. Hyperlipidemia. 4. Hypertension. 5. 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 7. Multiple myeloma. 8. Vitamin B12 deficiency. 9. Sciatica. 10. Back fracture. PAST SURGICAL HISTORY: 1. Cholecystectomy. 2. Bilateral cataract surgery. 3. Hysterectomy. 4. Tubal ligation. 5. Left hand carpal tunnel release. 6. Right hip surgery. SOCIAL HISTORY: Negative for alcohol and tobacco use. She denies recreational drug use. She currently uses a cane to ambulate. Lives at home with her son. FAMILY HISTORY: Remarkable in that her father had a stroke. REVIEW OF SYSTEMS: Positive for above. MEDICATION ALLERGIES: None. HOME MEDICATIONS: 1. Pletal 100 mg twice a day. 2. Glimepiride 4 mg twice a day. 3. Humulin 70/30 55 units once a day. 4. Humulin 70/30 35 units at supper. 5. Losartan 100 mg daily. 6. Metoprolol 50 mg once daily. 7. Systane eye drops 1 drop each eye daily. 8. Xalatan 0.005% ophthalmic solution. 9. Celexa 20 mg once daily. 10. [place] aspirin 81 mg daily. 11. MiraLAX 17 g once daily. PHYSICAL EXAMINATION: General: On exam, she is a pale white female in no acute distress. Vital Signs: Her blood pressure is 102/52, pulse 78, respirations 18, temperature of 98.1 degrees, oxygen saturation is 95% on room air. Her stated weight is 197 pounds. Her height is 5 feet 2 inches tall. Objective data including laboratory results are pending. RECOMMENDATIONS: 1. I spoke with Dr. Pollard at 8 p.m. as the patient needs to be admitted to the ICU. 2. Labs including CBC, CRP, CMP and iron studies were ordered. 3. CT scan of the abdomen and pelvis with contrast was ordered to rule out diverticulitis and possible perforation. 4. Zosyn 3.375 g IV q.6 h. has been ordered. 5. We have also ordered normal saline at 75 mL an hour pending her lab results. 6. Endoscopy will be based on her clinical course as well as her lab studies. Currently, she is not actively bleeding but has had recent GI bleeding. I viewed an image of her bowel movement immediately prior to transport to the hospital and there was copious amounts of bright red blood with clots. If she has recurrent bleeding through the night, we may need to consider urgent colonoscopy for presumed diverticular bleed. However, my hope is that we can delay the procedure given that she is on blood thinner and last dose was this evening. 7. Additional recommendations to follow based on her clinical course. cc: MD Neftaly Land MD Olakunle P. Akinsoto, MD Hiteshri S. Bhavsar, MD Khurshid Yousuf, MD MTDD
[2016-09-05] MEDS ORDERED: HUMALOG SUBQ ONE (21:32)
--- NOTE | 2016-09-05 21:37 | Diag Imaging Result Doc PS360 ---
EXAM: ABDOMEN/PELVIS W/CONTRAST HISTORY: LLQ pain, rectal bleeding, anemia TECHNIQUE: CT abdomen and pelvis with oral and intravenous contrast. Dose reduction protocol. COMPARISON: 05/20/2016 FINDINGS: The gallbladder has been removed. No focal hepatic abnormality. There may be mild fatty infiltration of the liver. Normal spleen, pancreas, adrenal glands, and kidneys. No hydronephrosis. No aortic aneurysm. Prominent atherosclerosis. There are scattered diverticula in the descending and sigmoid colon. Minimal adjacent inflammation along the distal descending colon. No free air. No abscess. Urinary bladder is moderately distended. The uterus has been removed. There is a small right ovarian cyst measuring 16 mm. No pelvic mass. There is metallic artifact from right hip prosthesis. IMPRESSION: 1.Mild descending diverticulitis 2.Severe atherosclerosis 3.Cholecystectomy 4.Hysterectomy 5.Compression fracture to the L1 vertebra. This has developed since the prior study from 07/11/2016. Electronically signed by Andrew Nuno 09/05/2016 9:35 PM
[2016-09-05] MEDS: TOPROL XL PO SCH (21:59)
[2016-09-05] MEDS: SODIUM CHLORIDE 0.9% INJ SCH (22:03)
[2016-09-05] MEDS: NEXIUM IV SCH (22:03)
[2016-09-05] MEDS: NS 1,000 ML IV SCH (22:03)
[2016-09-05] MEDS: ZOFRAN IV PRN (22:13)
--- NOTE | 2016-09-05 23:06 | HISTORY AND PHYSICAL ---
PRIMARY CARE PHYSICIAN: Sulaiman Borden MD REASON FOR ADMISSION: Four episodes of hematochezia today, nausea, vomiting, abdominal pain. HISTORY OF PRESENT ILLNESS: Ms. Kylee Aragon is a 81-year-old lady with past medical history of type 2 diabetes, hypertension, hyperlipidemia, diabetic neuropathy, prior CVAs, MGUS, vitamin B12 deficiency, peripheral vascular disease, who comes in today complaining of 4 episodes of hematochezia. She said the 4th episode she had which was at 5 p.m. today, she felt she passed out transiently while sitting on the commode. She said just before passing out, she became cold, clammy, nauseous. She did not fall or hit her head. She also noted she had some palpitations, but no other cardiorespiratory complaints. Said at least 4 episodes occurred over a 4 hour period. At that juncture, the family brought her in to be evaluated. She denies any use of any [id number] NSAIDs or new medications. The last medication she had been started on was Celexa 20 mg about a month ago. No bleeding from any other orifice. No fever. No chills. She also complains of simultaneous left lower quadrant pain. This started today. She said the pain was worse with walking and it would ease when she would put her hand to brace it. No radiation of this pain. Not related to meals. Four days ago, she noticed that she has been having some periodic lightheadedness, worse with standing or sitting. The patient has only vomited once and no coffee grounds or hematemesis. No genitourinary complaints. No cardiorespiratory complaints. REVIEW OF SYSTEMS: Twelve system review is negative. Positive findings as per HPI. Patient has no diarrhea. ALLERGIES: No known drug allergies. PAST SURGICAL HISTORY: Cholecystectomy, hysterectomy, cataract surgery, tubal ligation, right hip replacement, carpal tunnel release. SOCIAL HISTORY: She lives with her son. Does not smoke, drink or use illicit drugs. FAMILY HISTORY: Notable for strokes and some questionable intestinal disease. HOME MEDICATION: Celexa 20 mg daily, Pletal 100 mg b.i.d., aspirin 81 mg daily, Amaryl 4 mg b.i.d., 70/30 insulin, 68 units in the morning and 52 units with supper. Latanoprost 1 drop to both eyes daily. Cozaar 100 mg b.i.d., metoprolol-XL 50 mg b.i.d., MiraLAX 17 g daily, which was started about [address] Doss for constipation. LABORATORY WORK AND IMAGING: White count is 7000, hemoglobin and hematocrit 8 and 27, platelets 282,000, with normal differential. BUN is 23, creatinine is 1.3. Glucose is 147, ferritin 151, CRP is 2.89. Other iron studies are normal. LFT is normal. CT scan of the abdomen shows mild descending diverticulitis with severe atherosclerosis, compression of L1 fracture. Urinalysis pending. PT PTT is pending. PHYSICAL EXAMINATION: GENERAL: Pleasant obese elderly woman who is not in acute distress. She is alert and oriented to person, place, time with normal mood and affect. VITAL SIGNS: Blood pressure is 101/42, heart rate 74, respirations 18, temperature 98.8 degrees. HEENT: Head is normocephalic, atraumatic. Eyes: EVELYN EOMI. She is anicteric, but pale. ENT and oropharyngeal exam is grossly normal. NECK: Supple. No JVD or carotid bruit. No thyromegaly. CHEST: Clear to auscultation. Good air entry both lung sanders. CARDIOVASCULAR: First and second heart sounds heard. No gallops, murmurs or rubs. Rhythm is regular. ABDOMEN: Protuberant, soft with left lower quadrant tenderness, but no rebound or guarding. Bowel sounds are normal. No masses or organomegaly. RECTAL: Deferred at this time. EXTREMITIES: No edema, clubbing or peripheral cyanosis. Pulses in the lower extremity distally are diminished compared to the ones in the upper extremities. All pulses are symmetrical. NEUROLOGICAL: No focal deficits. SKIN: Intact with no breakdown lesions or erythema. MUSCULOSKELETAL: Grossly normal. ASSESSMENT: 1. Acute lower gastrointestinal bleed probably from diverticulitis, but with superimposed diverticular bleed. Cannot rule out ischemic colitis due to the severe atherosclerotic disease. For now aggressively rehydrate patient to restore good mesenteric flow if there is an ischemic colitis component to the problem. Empiric antibiotics have been started. Dr. Wood has been consulted and has seen patient in the ER. Serial hemoglobin and hematocrit will be done. If the hematocrit is less than 25, we will transfuse. 2. Type 2 diabetes. Continue sliding scale and low-dose Lantus. 3. Hypertension. We will hold blood pressure medications, especially ARB in face of the hypovolemia. Beta-blockers will be started conservatively provided blood pressure is greater than 130 and heart rate is not less than 65. Currently patient is not tachycardic. 1. Peripheral vascular disease. We will hold aspirin and Pletal at this time. Suggest statin therapy if patient did tolerate due to severe atherosclerosis. 2. Hyperlipidemia. Resume Lipitor which patient was on a while back. 3. Acute hemorrhagic anemia, secondary to gastrointestinal bleed. It is possible that patient may have been bleeding the last 4 days since she has had orthostatic symptoms. This is compounded by the fact that she is on Pletal, aspirin and even Celexa SSI which can also affect platelet function and increase her risk of bleeding. Empiric proton pump inhibitors have been started tubal to head off any upper gastrointestinal erosive lesions which can compound her current bleeding episode. The patient if stable can probably undergo a computed tomography angiography of the mesenteric area if no obvious bleeding source can be found if endoscopic evaluation is pursued. Patient will be admitted to the ICU on account of her being unstable and her underlying vascular disease. Critical time on this patient was estimated about 35 minutes. cc: MD Sulaiman Pelayo MD
[2016-09-05 23:24] LABS: HEMATOCRIT 23.9 % (37.0-47.0); HEMOGLOBIN 7.6 g/dL (12.0-16.0)
[2016-09-05 23:58] LABS: PTT 27.3 Seconds (22.0-36.0)
[2016-09-06 00:52] LABS: INR 1.02; PROTIME 10.7 Seconds (9.2-11.7)
[2016-09-06] MEDS: ZOSYN 3.375 GM/NS 3.375 GM/50 ML IVPB IV SCH ×4 (01:27→21:22)
[2016-09-06] MEDS ORDERED: NS 250 ML ONE (01:27)
[2016-09-06 01:41] LABS: URINE MICRO REVIEW NEEDED? NO; URINE SOURCE CLEAN CATCH
[2016-09-06] MEDS: MORPHINE IV PRN ×3 (01:51→22:55)
[2016-09-06 02:09] LABS: BILIRUBIN URINE NEGATIVE (NEGATIVE); BLOOD URINE MODERATE (NEGATIVE); COLOR STRAW; GLUCOSE URINE NEGATIVE (NEGATIVE); LEUKOCYTES URINE NEGATIVE (NEGATIVE); NITRITE URINE NEGATIVE (NEGATIVE); PH URINE 5.5; PROTEIN URINE NEGATIVE (NEGATIVE); SP GRAVITY URINE 1.037; TURBIDITY URINE CLEAR (CLEAR); UROBILINOGEN URINE NORMAL (NORMAL)
[2016-09-06 02:10] LABS: UR EPITHELIAL CELLS >10 /HPF (<10); URINE BACTERIA NEGATIVE /HPF; URINE RBC <10 /HPF (<10); URINE WBC <10 /HPF (<10)
[2016-09-06 04:41] LABS: MANUAL DIFF NEEDED? NO
[2016-09-06 04:51] LABS: BASO% 0.2 % (0.0-0.8); EOS# 0.14 X1000 (0.0-0.7); EOS% 1.7 % (0.0-10.0); HEMATOCRIT 26.1 % (37.0-47.0); HEMOGLOBIN 8.3 g/dL (12.0-16.0); LYMPH# 1.78 X1000 (1.2-3.4); MCH 30.4 PG (27-31); MCHC 31.8 g/dL (33-37); MCV 95.6 FL (81-99); MONO# 0.43 X1000 (0.11-0.59); MONO% 5.3 % (1.7-9.3); MPV 8.7 FL (7.4-10.4); NEUT% 70.8 % (42.2-75.2); PLT 228 X1000 (130-400); RBC 2.73 XMIL (4.2-5.4)
[2016-09-06 04:58] LABS: AGAP 11; BUN 21 mg/dL (8-22); CALCIUM 8.2 mg/dL (8.8-10.2); CHLORIDE 102 mmol/L (98-107); COSMO 280; POTASSIUM 4.8 mmol/L (3.5-5.1); SODIUM 136 mmol/L (136-145); TCO2 23 mmol/L (25-35)
[2016-09-06] MEDS: XALATAN 0.005% OPH SOLN BOTH EYES SCH (08:21)
[2016-09-06] MEDS: NS 1,000 ML IV SCH ×3 (08:21→17:04)
[2016-09-06] MEDS: NEXIUM IV SCH (08:21)
[2016-09-06] MEDS: SODIUM CHLORIDE 0.9% INJ SCH (08:37)
[2016-09-06] MEDS: TOPROL XL PO SCH ×3 (08:37→20:48)
[2016-09-06] MEDS ORDERED: LANTUS SUBQ SCH (09:00)
[2016-09-06 10:01] LABS: HEMATOCRIT 25.9 % (37.0-47.0); HEMOGLOBIN 8.2 g/dL (12.0-16.0)
--- NOTE | 2016-09-06 14:38 | PROGRESS NOTE ---
DATE: 09/06/2016 SUBJECTIVE: Patient reports feeling fine. Denies anymore episodes of bleeding for rectum. No dizziness, no chest pain, no shortness of breath. OBJECTIVE: Vital Signs: Temperature 97.6 degrees, heart rate 60, respiratory rate 14, blood pressure 109/50, O2 sats 100% on 2 L nasal cannula. General Examination: This is a 81-year-old female lying in bed, in no acute distress. HEENT: Head is normocephalic, atraumatic. Anicteric sclerae and pale conjunctivae. Mucous membranes moist. Neck: Supple. No jugular venous distention noted. No carotid bruits. No lymphadenopathy. No thyromegaly. Cardiovascular Examination: S1, S2 heard. No murmurs, gallops, or rubs. Regular rate and rhythm. Respiratory Examination: Clear bilaterally to auscultation. No work of breathing or using accessory muscles. Abdomen: Protuberant. A little bit distended and also mild tenderness to palpation of the left lower quadrant, but there are no sign of peritoneal irritation. Bowel sounds present. No organomegaly. Extremities: No clubbing, cyanosis, or edema. Peripheral pulses present in both legs. Neurological Examination: Patient alert oriented x3. Moves 4 extremities. Cranial nerves 2-12 grossly normal. LABORATORY DATA: Hemoglobin is 8.2, hematocrit 25.9. ASSESSMENT AND PLAN: 1. Acute lower gastrointestinal bleeding 2. Acute diverticulitis. 3. Diabetes mellitus type 2. 4. Hypertension. 5. Peripheral vascular disease. 6. Hyperlipidemia. 7. Anemia of blood loss. PLAN: The patient was admitted to the hospital for rectal bleeding and also CT of the abdomen shows diverticulitis. At this time, we prefer to hold any blood pressure medications, considering this episodes of GI bleeding. Patient is on Zosyn for diverticulitis. Patient has been admitted overnight in the intensive care unit because this patient was on Pletal and aspirin. I think at this time, this patient is stable. We can send him to a regular floor. GI, Dr. Wood has been consulted. So far, she has received 1 unit of blood and hemoglobin is 8.2 today. For diabetes, we will continue with the sliding scale insulin. For hyperlipidemia, we will continue with the Lipitor. We will transfuse if hemoglobin is 7 or less. At this point, my plan is to send this patient to a regular room. cc: Hollis Soto MD
[2016-09-06 16:11] LABS: HEMATOCRIT 27.1 % (37.0-47.0); HEMOGLOBIN 8.5 g/dL (12.0-16.0)
--- NOTE | 2016-09-06 18:34 | PROGRESS NOTE ---
DATE: 09/06/2016 REFERRING PHYSICIAN: Hollis Soto M.D. PRIMARY CARE PHYSICIAN: Sulaiman Borden M.D. PRIMARY FISH HEADER: Kael Doss M.D. SUBJECTIVE: Patient was admitted overnight with a lower GI bleed secondary to acute diverticulitis. She notes that since she was placed on Zosyn, her left lower quadrant pain has nearly resolved and she has had no more bleeding. She remains constipated. She attempted to defecate today after having the urge but was unable to pass a bowel movement. She is interested in beginning MiraLAX for her chronic constipation. She notes that this morning she felt slightly better. Over the course of the day, she notes the dizziness that she had at the time of admission has returned. She denies nausea with vomiting and abdominal pain. OBJECTIVE: Vital signs: On exam, her blood pressure is 137/53, pulse is 60 respiration 18, temperature of 98.3 degrees. Pulmonary: Lungs are clear to auscultation with normal expiratory effort. Cardiovascular: Reveals regular rate and rhythm with no murmurs, gallops, or rubs. Abdominal Exam: Reveals normoactive bowel sounds. The abdomen is soft with mild left lower quadrant tenderness but no rebound or guarding. This is a significant improvement compared to her exam on admission. Extremities: Bilaterally are negative for cyanosis, clubbing, or edema. OBJECTIVE DATA: Reveals a hemoglobin of 8.3 with hematocrit of 26.1 and a white count of 8.09 at 0430 today. Her platelet count was 228,000. At 16:05, her hemoglobin was 8.5 with hematocrit of 27.1. Her sodium is 136, potassium 4.8, chloride 102, CO2 of 23, BUN 21, creatinine 1.1 with a glucose of 198. Her calcium is 82. IMPRESSIONS: 1. Acute diverticulitis. 2. Lower gastrointestinal bleed secondary to #1. 3. Dizziness. 4. Anemia. RECOMMENDATION: 1. I would continue the Zosyn for treatment of the acute diverticulitis. 2. Continue Nexium for GI prophylaxis. 3. I will begin MiraLAX 17 g once daily for treatment of the constipation. She is aware that she may pass old blood but she should not see active GI bleeding. 4. Her hemoglobin is stable after being transfused 1 unit of blood. Recommend continue monitoring. 5. She reports the return of dizziness. I will defer to the primary team for further evaluation of her dizziness. cc: MD Hollis Land MD Hiteshri S. Bhavsar, MD Khurshid Yousuf, MD MTDD
[2016-09-06] MEDS: HUMULIN 70/30 SUBQ SCH (21:22)
[2016-09-06 22:15] LABS: HEMATOCRIT 25.1 % (37.0-47.0); HEMOGLOBIN 7.9 g/dL (12.0-16.0)
[2016-09-06] MEDS: ZOFRAN IV PRN (22:58)
[2016-09-07] MEDS: NS 1,000 ML IV SCH ×3 (00:52→13:38)
[2016-09-07] MEDS: ZOSYN 3.375 GM/NS 3.375 GM/50 ML IVPB IV SCH ×4 (02:34→20:48)
[2016-09-07 04:14] LABS: HEMATOCRIT 23.8 % (37.0-47.0); HEMOGLOBIN 7.4 g/dL (12.0-16.0)
[2016-09-07] MEDS: HUMULIN 70/30 SUBQ SCH ×2 (08:04→20:47)
[2016-09-07] MEDS: TOPROL XL PO SCH ×2 (08:05→20:49)
[2016-09-07] MEDS: MIRALAX PO SCH ×2 (10:09→13:48)
[2016-09-07] MEDS: SODIUM CHLORIDE 0.9% INJ SCH (10:12)
[2016-09-07] MEDS: NEXIUM IV SCH (10:12)
[2016-09-07 11:20] LABS: MANUAL DIFF NEEDED? NO
[2016-09-07 11:30] LABS: BASO% 0.3 % (0.0-0.8); EOS# 0.19 X1000 (0.0-0.7); EOS% 3.1 % (0.0-10.0); HEMATOCRIT 29.6 % (37.0-47.0); HEMOGLOBIN 9.2 g/dL (12.0-16.0); IMM GRAN# 0.02 X1000 (0.0-0.04); IMM GRAN% 0.3 % (0.0-0.5); LYMPH# 1.79 X1000 (1.2-3.4); LYMPH% 29.6 % (20.5-51.1); MCH 29.9 PG (27-31); MCHC 31.1 g/dL (33-37); MCV 96.1 FL (81-99); MONO# 0.31 X1000 (0.11-0.59); MONO% 5.1 % (1.7-9.3); MPV 8.4 FL (7.4-10.4); NEUT% 61.6 % (42.2-75.2); PLT 206 X1000 (130-400); RBC 3.08 XMIL (4.2-5.4)
[2016-09-07 11:39] LABS: AGAP 10; BUN 11 mg/dL (8-22); CALCIUM 8.8 mg/dL (8.8-10.2); CHLORIDE 104 mmol/L (98-107); COSMO 280; POTASSIUM 4.3 mmol/L (3.5-5.1); SODIUM 139 mmol/L (136-145); TCO2 25 mmol/L (25-35)
[2016-09-07] MEDS: XALATAN 0.005% OPH SOLN BOTH EYES SCH (12:58)
--- NOTE | 2016-09-07 14:51 | PROGRESS NOTE ---
DATE: 09/07/2016 SUBJECTIVE: The patient reports no more episodes of bleeding from rectum. No dizziness and no chest pain. No shortness of breath. OBJECTIVE: Vital Signs: Temperature is 98.0, heart rate 57, respiratory rate 20, blood pressure 132/43, O2 saturation 94% on room air. General Examination: This is a 81-year-old female, lying in bed in no acute distress. HEENT: Head is normocephalic, atraumatic. Anicteric sclerae and pale conjunctivae. Mucous membranes moist. Neck: Supple. No JVD noted. No carotid bruits. No lymphadenopathy. Cardiovascular exam: S1, S2 heard. No murmurs, gallops, or rubs. Regular rate and rhythm. Respiratory exam: Clear bilaterally to auscultation. No work of breathing or using accessory muscles. Abdomen: Protuberant. Abdomen is distended and slightly tender to palpation in the left lower quadrant. No signs of peritoneal irritation. Bowel sounds present. No organomegaly. Extremities: No clubbing, cyanosis, or edema. Peripheral pulses present in both legs. Neurological exam: Patient is alert and oriented x3. Moves 4 extremities. LABORATORY DATA: White cell count 6.04, hemoglobin 9.2, hematocrit 29.6, platelets 206. BMP unremarkable. ASSESSMENT AND PLAN: 1. Acute lower gastrointestinal bleeding. 2. Acute diverticulitis. 3. Diabetes mellitus type 2. 4. Hypertension. 5. Peripheral vascular disease. 6. Hyperlipidemia. 7. Anemia blood loss. Patient is stable so far. We have transferred this patient out of the unit yesterday. The hemoglobin as mentioned before is stable. Because of hemoglobin 7.2, we decided to transfuse 1 unit of blood. For acute diverticulitis, we are going to continue with Zosyn. For diabetes mellitus, patient is on sliding scale insulin. For hypertension, we are going to continue with his home medication as well as for hyperlipidemia. For anemia of blood loss, we will continue checking CBC. cc: Hollis Soto MD
--- NOTE | 2016-09-07 17:45 | PROGRESS NOTE ---
DATE: 09/07/2016 SUBJECTIVE: The patient states she is feeling much better today. She has been able to tolerate a regular diet and had a normal brown bowel movement. Since initiation of treatment with IV antibiotics, the left lower quadrant pain has resolved. OBJECTIVE: Her blood pressure is 134/37, pulse is 60, respirations 18, temperature 98.7 degrees. Her examination was deferred as the patient was sitting on the side of the bed eating dinner and had a room full of guests. OBJECTIVE DATA: Remarkable for hemoglobin of 7.4 with hematocrit of 23.8 at 0400 this morning. She received 1 unit of blood. Post-transfusion, hemoglobin is 9.2 with hematocrit of 29.6 and white count of 6.04. She had 206,000 platelets. Serum chemistries reveal a sodium of 139, potassium 4.3, chloride 104, CO2 of 25, BUN 11, creatinine 1.0, glucose of 150, and calcium of 8.8. RECOMMENDATIONS: 1. The patient has had an acute diverticular bleed. She does require 2 units of blood to be transfused this admission. It appears to be improving as she has no evidence of ongoing bleeding. Therefore, continue to monitor serial hemoglobins and hematocrits. 2. Continue IV Zosyn. I would place her on Augmentin for a total of 10 days of therapy when she is ready to transition to oral antibiotics. 3. I will discharge her to home on oral regimen as long as her hemoglobin is stable. She will need to undergo an outpatient colonoscopy by her primary breaker machine tender, Dr. Kael Doss. 4. Dr. Carlos Bryant is station worker this weekend. Please feel free to contact him if you have any difficulty or if her hemoglobin drops. cc: MD Hollis Land MD Hiteshri S. Bhavsar, MD Khurshid Yousuf, MD
[2016-09-08] MEDS: ZOSYN 3.375 GM/NS 3.375 GM/50 ML IVPB IV SCH ×2 (02:23→08:57)
[2016-09-08] MEDS: ZOFRAN IV PRN (03:04)
[2016-09-08] MEDS: MORPHINE IV PRN ×2 (03:04→06:53)
[2016-09-08 05:30] LABS: MANUAL DIFF NEEDED? NO
[2016-09-08 05:33] LABS: BASO% 0.4 % (0.0-0.8); EOS# 0.19 X1000 (0.0-0.7); EOS% 3.4 % (0.0-10.0); HEMATOCRIT 28.9 % (37.0-47.0); HEMOGLOBIN 9.2 g/dL (12.0-16.0); IMM GRAN# 0.03 X1000 (0.0-0.04); IMM GRAN% 0.5 % (0.0-0.5); LYMPH# 1.58 X1000 (1.2-3.4); LYMPH% 28.1 % (20.5-51.1); MCH 30.3 PG (27-31); MCHC 31.8 g/dL (33-37); MCV 95.1 FL (81-99); MONO# 0.46 X1000 (0.11-0.59); MONO% 8.2 % (1.7-9.3); MPV 8.7 FL (7.4-10.4); NEUT% 59.4 % (42.2-75.2); PLT 189 X1000 (130-400); RBC 3.04 XMIL (4.2-5.4)
[2016-09-08 05:49] LABS: AGAP 11; BUN 11 mg/dL (8-22); CALCIUM 9.2 mg/dL (8.8-10.2); CHLORIDE 106 mmol/L (98-107); COSMO 281; POTASSIUM 4.3 mmol/L (3.5-5.1); SODIUM 142 mmol/L (136-145); TCO2 25 mmol/L (25-35)
[2016-09-08] MEDS: NEXIUM IV SCH (08:56)
[2016-09-08] MEDS: SODIUM CHLORIDE 0.9% INJ SCH (08:56)
[2016-09-08] MEDS: MIRALAX PO SCH (08:58)
[2016-09-08] MEDS: TOPROL XL PO SCH (08:59)
[2016-09-08] MEDS: XALATAN 0.005% OPH SOLN BOTH EYES SCH (09:00)
[2016-09-08] MEDS: HUMULIN 70/30 SUBQ SCH ×2 (09:18→13:26)
[2016-09-08] MEDS: NS 1,000 ML IV SCH (11:03)
--- NOTE | 2016-09-08 11:39 | Diag Imaging Result Doc PS360 ---
ABDOMEN FLAT/UPRIGHT - 09/08/2016 INDICATION: abdominal distention TECHNIQUE: Two views COMPARISON: CT from 09/05/2016 FINDINGS: There is a nonobstructive bowel gas pattern. No free air or abdominal calcifications. IMPRESSION: No acute disease. Electronically signed by Fer Hidalgo 09/08/2016 11:37 AM
[2016-09-08] MEDS ORDERED: INSULIN PEN NEEDLES ONE (12:14)
[2016-09-08 13:03] VITALS: BP 111/78
--- NOTE | 2016-09-09 04:19 | DISCHARGE SUMMARY ---
ADMISSION DATE: 09/05/2016 DISCHARGE DATE: 09/08/2016 DISCHARGE DIAGNOSES: 1. Acute diverticulitis. 2. Gastrointestinal bleeding secondary to diverticulosis, stable. 3. Diabetes mellitus type 2. 4. Hypertension. 5. Peripheral vascular disease. 6. Hyperlipidemia. 7. Anemia of blood loss. CONSULTATIONS: Dr. Alicia Wood from GI. PROCEDURES: 1. CT of abdomen and pelvis showed mild descending diverticulitis, severe atherosclerosis, cholecystectomy, hysterectomy, a compression fracture of the L1 vertebra. 2. Abdomen x-ray done today showed no acute disease. HOSPITAL COURSE: This is a 81-year-old, female with a past medical history of diabetes type 2, hypertension, hyperlipidemia, diabetic neuropathy, vitamin B12 deficiency, and peripheral vascular disease who presented to the emergency department complaining of 4 episodes of hematochezia. The patient reports that the 4 episodes that she had were at 5 p.m. and then she was feeling very dizzy. The patient was admitted to the hospital for further evaluation and treatment. We have consulted Dr. Israel TUCKER who recommended medical treatment only. Patient was on Zosyn and patient was doing good. Rest of home medications have been restarted. Hemoglobin so far has been stable in the last 2 days, although we needed to use transfuse 2 units of blood. In any case, there are no more signs of bleeding. The patient is going to be discharged home with antibiotics. DISCHARGE PHYSICAL EXAMINATION: Vital Signs: Temperature 97.7 degrees, heart rate 52, respiratory rate 14, blood pressure 101/52, O2 saturation 97% on room air. General Examination: This is a 81-year-old, female lying in bed, in no acute distress. HEENT: Head is normocephalic and atraumatic. Anicteric sclerae and pale conjunctivae. Mucous membranes moist. Neck: Supple. No JVD noted. No carotid bruits. No lymphadenopathy. No thyromegaly. Cardiovascular Examination: S1 and S2 heard. No murmurs, gallops, or rubs. Regular rate and rhythm. Respiratory Examination: Clear bilaterally to auscultation. No work of breathing or using accessory muscles. Abdomen: Soft, nontender to palpation. No signs of peritoneal irritation. Neurological Examination: Patient is alert and oriented x3. Able to move 4 extremities. Cranial nerves 2-12 grossly normal. DISCHARGE DISPOSITION: To home to self-care. DISCHARGE MEDICATIONS: 1. Augmentin 875 one tablet p.o. b.i.d. for 10 days. 2. [place] 5 one tablet p.o. every 4 hours as needed for pain. 3. Toprol-XL 50 mg twice daily. 4. Cilostazol 100 mg p.o. twice daily. 5. Humulin 70/30 50 units subcutaneously in the morning. 6. Glimepiride 4 mg 1 tablet p.o. b.i.d. 7. Citalopram 20 mg 1 tablet p.o. daily. 8. Aspirin 81 mg 1 tablet p.o. daily. 9. Losartan 100 mg 1 tablet p.o. daily. FOLLOWUP: With Dr. Wood in 2 weeks. The patient advised to call her office next Saturday. cc: Hollis Soto MD
== END 2016-09-08 14:06 | disposition home or self-care (01) ==
LOC: ED 19:24 → SUATTDRO 21:20 → ICU 21:20 → 4N 09-06 13:46
PROVIDERS: ATTEND Internal Medicine